=== PATIENT | female | born 1990 | race Two or more races ===

== ENCOUNTER 2018-05-04 08:07 | Outpatient (CLI) | payer OTHER | END 2018-05-04 08:51 | disposition home or self-care (01) | LOC: SONOGRAMA 08:07 → MAMO-SONO 09:15 | DX: N94.0 Mittelschmerz (principal); R10.2 Pelvic and perineal pain; N94.89 Other specified conditions associated with female genital organs and menstrual cycle ==

== ENCOUNTER 2020-05-28 13:55 | Outpatient (CLI) | payer OTHER | END 2020-05-28 15:07 | disposition home or self-care (01) | LOC: SONOGRAMA 13:55 → MAMO-SONO 14:45 → SONOGRAMA 15:07 | PROVIDERS: ATTEND Obstetrics & Gynecology | DX: N88.8 Other specified noninflammatory disorders of cervix uteri (principal); N84.1 Polyp of cervix uteri; R10.2 Pelvic and perineal pain; N94.0 Mittelschmerz; N94.89 Other specified conditions associated with female genital organs and menstrual cycle ==

== ENCOUNTER 2022-06-20 17:50 | Emergency (ER) | payer OTHER ==
[~2022-06-20] VITALS: Ht 175.3 cm; Wt 122.0 kg
[2022-06-20] MEDS ORDERED: PRENA1 CHEW TA1.4 MG PO (18:13)
== END 2022-06-20 20:39 | disposition home or self-care (01) ==
LOC: ER 17:50
DX: O20.9 Hemorrhage in early pregnancy, unspecified (principal); Z3A.13 13 weeks gestation of pregnancy; Z91.013 Allergy to seafood

== ENCOUNTER 2022-06-21 08:54 | Outpatient (CLI) | payer OTHER ==
[~2022-06-21 08:54] MED LIST: PRENA1 CHEW TA1.4 MG PO
== END 2022-06-21 10:35 | disposition home or self-care (01) ==
LOC: PRENATAL 08:54
PROVIDERS: ATTEND Obstetrics & Gynecology Maternal & Fetal Medicine
DX: O36.80X0 Pregnancy with inconclusive fetal viability, not applicable or unspecified (principal); O99.210 Obesity complicating pregnancy, unspecified trimester; O26.859 Spotting complicating pregnancy, unspecified trimester; Z3A.13 13 weeks gestation of pregnancy

== ENCOUNTER 2022-08-21 08:57 | Outpatient (CLI) | payer OTHER | END 2022-08-21 10:46 | disposition home or self-care (01) | LOC: PRENATAL 08:57 | PROVIDERS: ATTEND Obstetrics & Gynecology Maternal & Fetal Medicine | DX: O35.9XX0 Maternal care for (suspected) fetal abnormality and damage, unspecified, not applicable or unspecified (principal); O35.3XX0 Maternal care for (suspected) damage to fetus from viral disease in mother, not applicable or unspecified; O26.859 Spotting complicating pregnancy, unspecified trimester; Z3A.22 22 weeks gestation of pregnancy ==

== ENCOUNTER 2022-10-30 08:45 | Outpatient (CLI) | payer OTHER | END 2022-10-30 09:45 | disposition home or self-care (01) | LOC: PRENATAL 08:45 | PROVIDERS: ATTEND Obstetrics & Gynecology Maternal & Fetal Medicine | DX: O26.849 Uterine size-date discrepancy, unspecified trimester (principal); O36.8199 Decreased fetal movements, unspecified trimester, other fetus; O99.210 Obesity complicating pregnancy, unspecified trimester; Z3A.32 32 weeks gestation of pregnancy ==

== ENCOUNTER 2022-12-05 21:27 | Inpatient (IN) | payer OTHER ==
[~2022-12-05] VITALS: Ht 175.3 cm; Wt 116.1 kg
[2022-12-05] MEDS ORDERED: CONCEPT DHA CA1 EACH PO (21:47)
[2022-12-05] MEDS ORDERED: ECOTRIN81 MG PO (21:47)
== END 2022-12-08 13:55 | disposition home or self-care (01) | DRG 807 ==
LOC: LDR 21:27 → OB/GYN 12-06 15:48
PROVIDERS: ADMIT Obstetrics & Gynecology; ATTEND Obstetrics & Gynecology
PROC: 4A1HXCZ Monitoring of Products of Conception, Cardiac Rate, External Approach (ICD-10-PCS; 2022-12-05)
PROC: 10E0XZZ Delivery of Products of Conception, External Approach (ICD-10-PCS; principal; 2022-12-06)
PROC: 0KQM0ZZ Repair Perineum Muscle, Open Approach (ICD-10-PCS; 2022-12-06)
DX: O70.1 Second degree perineal laceration during delivery (principal); Z37.0 Single live birth; Z3A.37 37 weeks gestation of pregnancy; Z20.822 Contact with and (suspected) exposure to COVID-19